=== PATIENT | female | born 1980 | race Caucasian/White ===

== ENCOUNTER → 2024-06-04 09:44 | Outpatient (REF) | payer BC, SELFPAY | LOC: HWRAD 09:44 | PROVIDERS: ATTENDING PHYSICIAN Urology; FAMILY PHYSICIAN Nurse Practitioner | DX: R80.9 Proteinuria, unspecified (principal); N30.10 Interstitial cystitis (chronic) without hematuria; M62.89 Other specified disorders of muscle; R19.4 Change in bowel habit; N39.41 Urge incontinence; N39.3 Stress incontinence (female) (male); N95.8 Other specified menopausal and perimenopausal disorders | CPT/HCPCS: 76770; 76856 ==